=== PATIENT | male | born 1980 | race African-American/Black ===

== ENCOUNTER 2017-07-23 02:50 | Emergency (ER) | payer SELFPAY ==
[~2017-07-23] VITALS: Ht 182.9 cm; Wt 85.0 kg
[~2017-07-23 02:50] MED LIST: Z.0.NO CURRENT MEDS
[2017-07-23 02:56] VITALS: BP 136/84; PULSE 118; RESP 16; TEMP 98.6; O2SAT 96
[2017-07-23] MEDS ORDERED: TETANUS/DIPHTHERIA TOXOID ADULT 0.5 ML VIAL IM ONE (03:15)
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
== END 2017-07-23 03:49 | disposition left against medical advice (07) ==
LOC: NEPD 03:10
DX: S01.01XA Laceration without foreign body of scalp, initial encounter (principal); Y08.89XA Assault by other specified means, initial encounter; Z93.3 Colostomy status; F17.200 Nicotine dependence, unspecified, uncomplicated
CPT/HCPCS: 99281

== ENCOUNTER 2017-07-30 21:52 | Emergency (ER) | payer SELFPAY ==
[~2017-07-30] VITALS: Ht 180.3 cm; Wt 88.0 kg
[2017-07-30 22:01] VITALS: BP 141/82; PULSE 72; RESP 18; TEMP 98.1; O2SAT 98
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
== END 2017-07-30 22:24 | disposition home or self-care (01) ==
LOC: NEPD 21:52
DX: S09.90XA Unspecified injury of head, initial encounter (principal); Z48.02 Encounter for removal of sutures; F17.210 Nicotine dependence, cigarettes, uncomplicated; W22.8XXA Striking against or struck by other objects, initial encounter
CPT/HCPCS: 99281